=== PATIENT | female | born 1945 | race Caucasian/White ===

== ENCOUNTER 2018-04-27 09:54 | Inpatient (IN) ==
[2018-04-27] MEDS ORDERED: 0.9 % Sodium Chloride 500 ML IVC ONE (10:32)
[2018-04-27 10:50] LABS: Basophils # 0.1 K/mcL (0.0-0.2); Basophils % 0.6 %; Eosinophils # 0.5 K/mcL (0.0-0.6); Eosinophils % 3.8 %; Hematocrit 45.5 % (35.3-44.9); Hemoglobin 14.6 g/dL (11.5-15.4); Immature Granulocytes % 0.7 % (0-4); Lymphocytes # 2.9 K/mcL (0.6-4.6); Mean Corpuscular HGB Conc 32.1 g/dL (31.6-35.5); Mean Corpuscular Hemoglobin 28.9 pg (28.0-33.3); Mean Corpuscular Volume 89.9 fL (83.0-100.0); Mean Platelet Volume 11.2 fL (9.4-12.4); Monocytes # 1.2 K/mcL (0.0-1.3); Monocytes % 9.9 %; Neutrophils # 7.7 K/mcL (1.6-8.9); Platelet Count 213 K/mcL (140-400); Red Blood Count 5.06 M/mcL (3.82-4.97); Red Cell Distribution Width 14.2 % (11.5-14.5)
[2018-04-27 10:57] LABS: INR 0.9; Prothrombin Time 9.9 Seconds (9.4-12.1)
[2018-04-27 11:00] LABS: Activated Partial Thrombo Time 28.4 Seconds (26.0-36.0)
[2018-04-27 11:09] LABS: Calcium 9.5 mg/dL (8.6-10.3); Potassium 4.5 mEq/L (3.5-5.1)
[2018-04-27] MEDS ORDERED: Isovue-370 500 ML INFUS..BTL IV ONE (11:10)
[2018-04-27] MEDS: Aspirin 81 MG TAB.CHEW PO SCH (11:11)
[2018-04-27 11:12] LABS: Troponin I 0.05 ng/mL (< 0.04)
[2018-04-27] MEDS ORDERED: *HR* Heparin 5,000 UNIT/ML VIAL IVP PRN ×2 (11:16)
[2018-04-27] MEDS ORDERED: *HR* Heparin 5,000 UNIT/ML VIAL IVP ONE (11:16)
[2018-04-27 11:45] LABS: Heparin anti-factor XA UFH 0.06 IU/mL (0.30-0.70)
[2018-04-27 11:46] LABS: VBG HCO3 29 mEq/L (21-27); VBG PCO2 50 mmHg (41-51); VBG PH 7.38 pH Units (7.32-7.42); VBG PO2 63 mmHg (25-50)
--- NOTE | 2018-04-27 11:54 | Emergency Department Note ---
Disposition Clinical Impression: Shortness of breath Atrial fibrillation Qualifiers: Atrial fibrillation type: unspecified Qualified Code(s): I48.91 - Unspecified atrial fibrillation Chest pain Qualifiers: Chest pain type: unspecified Qualified Code(s): R07.9 - Chest pain, unspecified Disposition: Admitted As Inpatient Condition: Fair Referrals: Aleyda Moy CNP [Primary Care Provider] - 05/07/18 11:00 am Time of Disposition: 13:36 Arrhythmia/Palpitations HPI - General Chief Complaint: ED Shortness of Breath/Dyspnea Stated Complaint: HHR Time Seen by Provider: 04/27/18 10:10 Source: patient Limitations: no limitations Nursing Notes Reviewed: Yes Vital Signs Reviewed: Yes - History of Present Illness HPI Narrative: Patient is a 72-year-old female presenting from her primary care physician to [facility] ED due to elevated heart rate. The patient states for the past month that she has experienced lightheadedness, shortness of breath, and heart palpitations and was scheduled for a cardiac s tress test on the . 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 Upon EKG evaluation it was found that the patient was in atrial fibrillation with RVR. Patient states that she has no known history of heart disease or atrial fibrillation arrhythmia. Patient states "this is a shock to me". Pt Subjective Complaint: rapid heart beat, irregular heart beat Onset (ago): month(s) Duration: intermittent Severity: moderate Context: occurred during rest, occurred during exertion Arrhythmia History: other (Patient denies previous known history of A. fib) Associated symptoms: Reports: chest pain, shortness of breath, nausea, paresthesias. Denies: vomiting - Related Data Home Medications Medication Instructions Recorded Confirmed Aspirin 325 mg PO DAILY 04/27/18 04/27/18 BuPROPion XL (24 HR) [Wellbutrin 150 mg PO DAILY 04/27/18 04/27/18 XL] Colchicine [Mitigare] 0.6 mg PO AD PRN 04/27/18 04/27/18 DULoxetine [Cymbalta] 30 mg PO BID 04/27/18 04/27/18 Dicyclomine [Bentyl] 10 mg PO QID 04/27/18 04/27/18 Febuxostat [Uloric] 40 mg PO DAILY 04/27/18 04/27/18 Furosemide [Lasix] 40 mg PO DAILY 04/27/18 04/27/18 Linagliptin [Tradjenta] 5 mg PO DAILY 04/27/18 04/27/18 Lisinopril 2.5 mg PO DAILY 04/27/18 04/27/18 Lovastatin 40 mg PO QPM 04/27/18 04/27/18 Omeprazole [PriLOSEC] 20 mg PO DAILY 04/27/18 04/27/18 Pioglitazone HCl [Actos] 15 mg PO DAILY 04/27/18 04/27/18 Potassium Chloride [K-Tab ER] 10 meq PO DAILY 04/27/18 04/27/18 Ranitidine HCl [Acid Campus Manager] 150 mg PO DAILY 04/27/18 04/27/18 Tizanidine HCl 4 mg PO TID PRN 04/27/18 04/27/18 glipiZIDE [Glipizide] 10 mg PO BID 04/27/18 04/27/18 Allergies Allergy/AdvReac Type Severity Reaction Status Date / Time gabapentin Allergy Dizziness Verified 08/19/15 08:03 indomethacin Allergy Dizziness Verified 04/26/15 20:36 All systems ED: reviewed and negative except as stated. Review of Systems: As Per HPI Constitutional: Reports: weakness, other (Patient states lightheadedness/dizziness) Eyes: Denies: vision change Cardiovascular: Reports: chest pain, palpitations, dyspnea on exertion Respiratory: Reports: dyspnea Gastrointestinal: Reports: nausea. Denies: abdominal pain, vomiting Musculoskeletal: Reports: back pain Neurological: Denies: headache, numbness, paresthesias Endocrine: Reports: fatigue Past Medical History - Past Medical History Medical history: Reports: arthritis, diabetes, fibromyalgia, renal disease Surgical history: Reports: hysterectomy Psychiatric history: Reports: no psych history - Social History Smoking Status: Never smoker Smokeless Tobacco Status: No Alcohol use: Reports: none Drug use: Reports: none Physical Exam - General Limitations: no limitations General appearance: alert, in distress - Head Head exam: atraumatic, normocephalic - Eye Eye exam: Present: normal appearance, PERRL, EOMI. Absent: scleral icterus, conjunctival injection - Neck Neck exam: Present: trachea midline - Chest Chest inspection: Present: normal inspection, symmetric chest wall rise - Respiratory Respiratory exam: Present: normal lung sounds bilaterally. Absent: respiratory distress, wheezes, stridor, accessory muscle use, prolonged expiratory phase - Cardiovascular Cardiovascular exam: Present: tachycardia, irregular rhythm, normal heart sounds, +S1, +S2. Absent: JVD, +S3, +S4 - Abdominal Exam Abdominal exam: Present: soft, Non-Tender, normal bowel sounds. Absent: distention, guarding, rebound, rigidity - Neurological Exam Neurological exam: Present: alert, oriented X3 - Psychiatric Psychiatric exam: Present: normal affect, normal mood - Skin Skin exam: Present: warm, dry, intact, normal color. Absent: cyanosis, diaphoresis Course Course Narrative: Patient history, review systems, physical exam is concerning for cardiopulmonary process. Chest pain order set will be initiated in order to assess for potential underlying etiologies. 20 mg Cardizem as well as drip will be initiated for the management of atrial fibrillation with rapid ventricular response. Patient d-dimer noted to be elevated at 984-we will perform V/Q scan will be performed to assess for pulmonary embolism in lieu of CTA due to CKD. Vital Signs Temperature 98.4 F 04/27/18 10:01 Pulse Rate 173 04/27/18 10:01 Respiratory Rate 20 04/27/18 10:01 Blood Pressure 109/62 04/27/18 10:01 O2 Sat by Pulse Oximetry 98 04/27/18 10:01 Temperature 98.4 F 04/27/18 10:19 Pulse Rate 107 04/27/18 12:30 Respiratory Rate 21 04/27/18 12:30 Blood Pressure 105/91 04/27/18 12:30 O2 Sat by Pulse Oximetry 98 04/27/18 12:30 Oxygen Delivery Oxygen Delivery Room Air Arrhythmia/Palpitations - MDM Narrative Medical decision making narrative: Patient d-dimer is elevated, patient receive a VQ scan due to chronic kidney disease in lieu of CT angiogram of the chest. Admission planning discussed with patient for further evaluation and treatment of atrial fibrillation with rapid ventricular response. Plan was discussed with the patient and daughter and the patient agrees with this plan. Hospitalist accepts admission. - Differential Diagnosis Differential Diagnosis: Likely: artial arrhythmia - Lab Data Lab results reviewed: Yes I reviewed the patient's lab results. Result diagrams: 04/27/18 10:30 04/27/18 10:30 Lab Results 04/27/18 04/27/18 04/27/18 Range/Units 10:30 10:30 10:30 WBC (4.3-11.1) K/mcL RBC (3.82-4.97) M/mcL Hgb (11.5-15.4) g/dL Hct (35.3-44.9) % MCV (83.0-100.0) fL MCH (28.0-33.3) pg MCHC (31.6-35.5) g/dL RDW (11.5-14.5) % Plt Count (140-400) K/mcL MPV (9.4-12.4) fL Immature Gran % (0-4) % Seg Neutrophils % % Lymphocytes % % Monocytes % % Eosinophils % % Basophils % % Neutrophils # (1.6-8.9) K/mcL Lymphocytes # (0.6-4.6) K/mcL Monocytes # (0.0-1.3) K/mcL Eosinophils # (0.0-0.6) K/mcL Basophils # (0.0-0.2) K/mcL PT 9.9 (9.4-12.1) Seconds INR 0.9 APTT 28.4 (26.0-36.0) Seconds D-Dimer 994 H (0-500) ng/mLFEU Heparin Anti-Xa, Unfract 0.06 L (0.30-0.70) IU/mL VBG pH (7.32-7.42) pH Units VBG pCO2 (41-51) mmHg VBG pO2 (25-50) mmHg VBG HCO3 (21-27) mEq/L Sodium (136-145) mEq/L Potassium (3.5-5.1) mEq/L Chloride (98-107) mEq/L Carbon Dioxide (23-29) mEq/L BUN (8-23) mg/dL Creatinine (0.60-1.20) mg/dL Est GFR ( Amer) (> 60) Est GFR (Non-Af Amer) (> 60) BUN/Creatinine Ratio (6-26) Glucose (70-105) mg/dL Calculated Osmolality (280-300) Calcium (8.6-10.3) mg/dL Magnesium (1.6-2.6) mg/dL Troponin I (< 0.04) ng/mL B-Natriuretic Peptide 138 H (Less than 100) pg/mL Lipase 41 (11-82) Units/L TSH (0.340-5.600) mcIU/mL 04/27/18 04/27/18 04/27/18 Range/Units 10:30 10:30 11:43 WBC 12.4 H (4.3-11.1) K/mcL RBC 5.06 H (3.82-4.97) M/mcL Hgb 14.6 (11.5-15.4) g/dL Hct 45.5 H (35.3-44.9) % MCV 89.9 (83.0-100.0) fL MCH 28.9 (28.0-33.3) pg MCHC 32.1 (31.6-35.5) g/dL RDW 14.2 (11.5-14.5) % Plt Count 213 (140-400) K/mcL MPV 11.2 (9.4-12.4) fL Immature Gran % 0.7 (0-4) % Seg Neutrophils % 62.0 % Lymphocytes % 23.0 % Monocytes % 9.9 % Eosinophils % 3.8 % Basophils % 0.6 % Neutrophils # 7.7 (1.6-8.9) K/mcL Lymphocytes # 2.9 (0.6-4.6) K/mcL Monocytes # 1.2 (0.0-1.3) K/mcL Eosinophils # 0.5 (0.0-0.6) K/mcL Basophils # 0.1 (0.0-0.2) K/mcL PT (9.4-12.1) Seconds INR APTT (26.0-36.0) Seconds D-Dimer (0-500) ng/mLFEU Heparin Anti-Xa, Unfract (0.30-0.70) IU/mL VBG pH 7.38 (7.32-7.42) pH Units VBG pCO2 50 (41-51) mmHg VBG pO2 63 H (25-50) mmHg VBG HCO3 29 H (21-27) mEq/L Sodium 138 (136-145) mEq/L Potassium 4.5 (3.5-5.1) mEq/L Chloride 102 (98-107) mEq/L Carbon Dioxide 29 (23-29) mEq/L BUN 33 H (8-23) mg/dL Creatinine 1.37 H (0.60-1.20) mg/dL Est GFR ( Amer) 46 L (> 60) Est GFR (Non-Af Amer) 38 L (> 60) BUN/Creatinine Ratio 24 (6-26) Glucose 259 H (70-105) mg/dL Calculated Osmolality 302 H (280-300) Calcium 9.5 (8.6-10.3) mg/dL Magnesium 2.1 (1.6-2.6) mg/dL Troponin I 0.05 H* (< 0.04) ng/mL B-Natriuretic Peptide (Less than 100) pg/mL Lipase (11-82) Units/L TSH 0.148 L (0.340-5.600) mcIU/mL - Radiology Data Radiology results reviewed: Yes I reviewed the patient's radiology results. Chest X-Ray 04/27/18 10:35 IMPRESSION: Nodular left basilar opacity, which may be artifactual or due to a pulmonary nodule. Further evaluation with a noncontrast chest CT is recommended. D/ /27/2018 11:04:56 Mike Raines MD / [email or web address] [email or web address] Interpreting Provider: Mike Raines MD - EKG Data EKG attestation: Yes I reviewed and interpreted this EKG. EKG results narrative: Patient EKG shows atrial fibrillation with rapid ventricular response with a ventricular rate of 167 bpm, QRS duration 86 ms, QT/QTc interval 252/343 ms respectively. There are no significant ST segment elevations or depressions, abnormal T-wave inversions, or pathologic Q waves. Or any other signs of acute ischemic change. This EKG shows significant changes in the ADDITION of atrial fibrillation from prior EKG that was performed on 08/19/2015. Attestation Statement - Attestation Attestation: I, Cuong Johnson, examined this patient and my medical decision-making was reviewed with the CARE CLINICIAN/PA/Advanced Practice Nurse/Resident Physician. I agree with the documented findings, disposition and treatment plan as described except to the extent set forth below. 72-year-old female brought to the emergency Department with concerns of shortness breath, weakness, fatigue and tachycardia. On evaluation emergency Department she has tachycardia to a rate of 160 which appears to be atrial fibrillation with a rapid ventricular rate. No history of itching fibrillation in the past. Patient denies chest pain however she has a history of increased shortness of breath with exertion and weakness over the past few weeks. No recent medication changes. D-dimer was elevated and patient will require V/Q scan however we will be unable to obtain VQ scan for many hours as the chemicals used test have to be brought to the hospital. She will be started on heparin for treatment of A. fib but also possible PE. Patient will be admitted to the hospitalist for further care and evaluation.
--- NOTE | 2018-04-27 12:14 | Internal Med History&Physical ---
Date of Encounter: 04/27/18 Time of Encounter: 12:06 Internal Medicine - H&P: HPI Chief complaint: irregular heart beat Admitted From: Home Plans for Post Hospital Care: Home History of present illness: Ms. Mason is a 72 year old female with history of diabetes, hypertension, chronic kidney disease and arthritis presented to the emergency department from her physician office for irregular heartbeat. she went to her pain management physician for bilateral sacroillitis pain injection adn was found to have rapid irregular HR and was referred to The ED for further workup and management. As per patient she has never had any cardiac history and has never been told that she has irregular heartbeat. She reports that she is at her usual health state however does report that for the past week she has developed increasing shortness of breath. Her shortness of breath started suddenly last week and has progressively worsened. She reports that deep breathing causes her to feel discomfort in her chest. Source of breath is at rest and worsens on exertion however she denies any left-sided chest pain or palpitations associated with her shortness of breath. 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 She also does report bilateral leg swelling which has increased from her baseline. She denies fever, chills, cough, chest pain, palpitations, PND, orthopnea, nausea, vomiting, diarrhea, recent travel. She has never had symptoms like this before and denies smoking. While in the ED she was found to have atrial fibrillation with RVR, elevated troponin and BNP. She was started on Cardizem drip and was endorsed for further management of her above symptoms. Past Med Surg Social Fam HX - Past Medical History Medical history: arthritis, diabetes, fibromyalgia, renal disease Additional medical history: gout Psychiatric history: no psych history - Past Surgical History Surgical History: hysterectomy - Social History Smoking Status: Never smoker Smokeless Tobacco Status: No Alcohol use: none Drug use: none - Family History Father Living Status: Mother Living Status: Internal Medicine - H&P: Meds Aspirin 325 mg PO DAILY 04/27/18 [History] BuPROPion XL (24 HR) [Wellbutrin XL] 150 mg PO DAILY 04/27/18 [History] Colchicine [Mitigare] 0.6 mg PO AD PRN 04/27/18 [History] DULoxetine [Cymbalta] 30 mg PO BID 04/27/18 [History] Dicyclomine [Bentyl] 10 mg PO QID 04/27/18 [History] Febuxostat [Uloric] 40 mg PO DAILY 04/27/18 [History] Furosemide [Lasix] 40 mg PO DAILY 04/27/18 [History] Linagliptin [Tradjenta] 5 mg PO DAILY 04/27/18 [History] Lisinopril 2.5 mg PO DAILY 04/27/18 [History] Lovastatin 40 mg PO QPM 04/27/18 [History] Omeprazole [PriLOSEC] 20 mg PO DAILY 04/27/18 [History] Pioglitazone HCl [Actos] 15 mg PO DAILY 04/27/18 [History] Potassium Chloride [K-Tab ER] 10 meq PO DAILY 04/27/18 [History] Ranitidine HCl [Acid Salvage Mechanic] 150 mg PO DAILY 04/27/18 [History] Tizanidine HCl 4 mg PO TID PRN 04/27/18 [History] glipiZIDE [Glipizide] 10 mg PO BID 04/27/18 [History] Allergy/AdvReac Type Severity Reaction Status Date / Time gabapentin Allergy Dizziness Verified 08/19/15 08:03 indomethacin Allergy Dizziness Verified 04/26/15 20:36 All Systems PM: A 10-system review of systems was performed and is negative for pertinent findings except as documented above in the HPI. - Constitutional Vitals: Temp Pulse Resp BP Pulse Ox 98.4 F 105 19 175/138 99 04/27/18 10:19 04/27/18 11:16 04/27/18 11:16 04/27/18 11:16 04/27/18 11:16 Exam: General: Patient is alert, oriented, no acute distress, morbidly obese, speaks in full sentences Head: atraumatic, normocephalic, Eye: normal appearance, PERRL, no scleral icterus, no conjunctival injection ENT: mucous membranes moist, normal external ear exam Neck: normal inspection, trachea midline, full ROM, no carotid bruits Chest: normal inspection, symmetric chest rise Respiratory: Distant breath sounds secondary to body habitus, Good respiratory effort. Bilateral breath sounds are clear without wheezing, crackles, or rhonchi. Cardiovascular: Distant heart sounds secondary to body habitus, irregularly irregular . s1 and s2 No clicks, rubs, gallops, or murmors. Abdomen: Bowel sounds present normoactive x-4 quadrants. Abdomen is soft, no Epigastric tenderness. No guarding or rebound. No organomegaly noted, obese musculoskeletal: Spontaneously moving all extremities. Trace edema bilateral lower extremities, no calf tenderness Skin: warm, dry, intact. Notable bruising on her upper extremities and lower extremities in different stages of healing. Neuro: Alert and oriented x4. Sensation light touch intact. Cranial nerves 2- 12 is intact. No focal deficit Internal Med - H&P Results - Labs CBC & Chem 7: 04/27/18 10:30 04/27/18 10:30 Labs: Short CBC 04/27/18 Range/Units 10:30 WBC 12.4 H (4.3-11.1) K/mcL Hgb 14.6 (11.5-15.4) g/dL Hct 45.5 H (35.3-44.9) % Plt Count 213 (140-400) K/mcL Neutrophils # 7.7 (1.6-8.9) K/mcL BMP 04/27/18 10:30 Sodium 138 Potassium 4.5 Chloride 102 Carbon Dioxide 29 BUN 33 H Creatinine 1.37 H Glucose 259 H Calcium 9.5 Cardiac Enzymes 04/27/18 Range/Units 10:30 Troponin I 0.05 H* (< 0.04) ng/mL - ABG Interpretation ABG results: 04/27/18 11:43 VBG pH 7.38 VBG pCO2 50 VBG pO2 63 H VBG HCO3 29 H - EKG Data -: EKG Interpreted by Myself (Atrial fibrillation with RVR, nonspecific ST-T changes) - EKG Data Prior EKG available for review: yes When compared to previous EKG: there are significant changes - Impressions ITS Impressions Chest X-Ray 04/27/18 10:35 IMPRESSION: Nodular left basilar opacity, which may be artifactual or due to a pulmonary nodule. Further evaluation with a noncontrast chest CT is recommended. D/ /27/2018 11:04:56 Mike Raines MD / kristen Interpreting Provider: Mike Raines MD - Assessment and plan (1) First detected episode of atrial fibrillation Current Visit: Yes Status: Acute Assessment and plan: Heart rate was 173 upon arrival to the emergency department chads vasc 4 Cardiac monitoring Was started on Cardizem drip will continue to titrate to control the heart rate Cardiology consulted ( Spoke to Dr. Fuchs) will follow recommendations Continue with heparin drip- pharmacy to dose TSH, magnesium, phosphorus Echocardiogram stat Oxygen via nasal cannula keep saturations above 92% We will follow serial troponins and EKGs every 6 hours CXR: FINDINGS: There is a somewhat nodular opacity at the base of the left lung. No pleural effusion or pneumothorax is seen. The heart is enlarged. There is no evidence of edema. No acute osseous abnormality is seen. (2) Acute respiratory failure with hypoxia Current Visit: Yes Status: Acute Assessment and plan: Wells criteria- 6- (at moderate risk) D-Dimer 900 unable to perform CTPA in very to chronic kidney disease VQ scan was ordered in the emergency department will follow Echocardiogram ordered Continue with heparin drippharmacy to dose DVT study of the lower extremities continuous pulse ox Continue oxygen via nasal cannula to keep saturations above 92% (3) Diabetes Current Visit: Yes Status: Acute Assessment and plan: We will start her on low-dose sliding scale- adjust as per fingersticks A1c in a.m. Qualifiers: Diabetes mellitus type: type 2 Diabetes mellitus assisted insulin use: without assisted use Diabetes mellitus complication status: without complication Qualified Code(s): E11.9 - Type 2 diabetes mellitus without complications (4) Morbid obesity with BMI of 50.0-59.9, adult Current Visit: No Status: Chronic Assessment and plan: Was counseled BMI is 52.6 Nutrition consult needs OP sleep study (5) DVT prophylaxis Current Visit: Yes Status: Acute Assessment and plan: On heparin drip - Time Spent With Patient Total time spent is greater than 50% in coordination of care (as documented) at patient's floor/unit and/or counseling patient:
[2018-04-27] MEDS ORDERED: Furosemide 20 MG/2 ML VIAL IVP ONE ×2 (12:24→14:09)
[2018-04-27] MEDS ORDERED: Naloxone 0.4 MG/ML INJ IVP PRN (12:26)
[2018-04-27] MEDS: Heparin 25,000 UNIT/500 ML D5W 25,000 UNIT/500 ML BAG IVC SCH (12:27)
[2018-04-27 12:29] LABS: Magnesium 2.1 mg/dL (1.6-2.6)
[2018-04-27 12:49] LABS: Thyroid Stimulating Hormone 0.148 mcIU/mL (0.340-5.600)
[2018-04-27] MEDS ORDERED: 0.9 % Sodium Chloride 1,000 ML ONE (13:26)
--- NOTE | 2018-04-27 13:48 | Cardiology Consult Note ---
<Rose Flores - Last Filed: 04/27/18 14:16> Date of Encounter: 04/27/18 Time of Encounter: 13:37 Assessment and Plan (1) Atrial fibrillation with RVR Current Visit: Yes Status: Acute New onset A fib wit RVR currently HR 149 on 10 of cardizem drip. EKG repeated and reviewed showed A fib with no acute signs of ischemia with minimal elevated troponin at 0.05. Possible etiology in recent gout flair and hyperthyriodism with risk factors of untreated DEBRA - need to rule out ACS and heart failure given chronic progressive symptoms. CADVASC of 5 and may need continued anticoagulation. - continue cardizem and heparin drip - agree with need for echo - trend troponins - lasix 40mg IV daily - low TSH 0.148, consider free T3 and T4 (2) Elevated d-dimer Current Visit: Yes Status: Acute D dimer of 994 with new onset A fib and concern for PE - agree with need for V-Q scan - continue heparin drip (3) DEBRA (obstructive sleep apnea) Current Visit: Yes Status: Chronic (4) Hyperthyroidism Current Visit: Yes Status: Acute New diagnosis and possible etiology for A fib Discussion w patient/family: The assessment and plan as outlined above was discussed with the patient and/or family members who expressed understanding and agreement. All questions were answered. Thank you for involving us in the care of your patient. Please call with any questions. History of Present Illness Consult date: 04/27/18 Consult reason: new onset A fib with RVR Chief complaint: shortness of breath History of present illness: Ms. Mason is a 72 year old female hx DEBRA, DM and CKD stage 3 sent to ER by Pain Medicine due to irregular heart rate and shortness of breath at rest onset before any procedure. She reports one week of headache, increased shortness of breath, increased pedal edema, and dizziness evaluated by PCP and schedule for out patient stress test. Denies chest pain, palpitations and syncope. Headache pounding located at frontal and occiput with out aura, photophobia or phonophobia. In ED, found to be in A fib with RVR with HR 137 started on cardizem and heparin drip with decrease of heart rate to 107. BP liable in ED with range form 187/159 to 109/62. Positive D dimer with concern for PE - awaiting VQ scan. Recent illness with gout flair treated by ED last week with oral steriods- frequent steroid use every few months for years. No history of heart disease. PMHx HTN, CKD, GERD, morbid obesity, fibromalagia, gout and DM well controlled with out insulin use. FMHX of father at age 57 of [place]. She was diagnosed with DEBRA decades ago s/p uvulectomy and tonsillectomy - admits to snoring and waking unrested but never evaluated and doesn't use CPAP. Distant smoking history of 20 pk yr quit 40 yesra ago. Denies illicit drug use. Past Med Surg Social Fam HX - Past Medical History Medical history: arthritis, diabetes, fibromyalgia, renal disease Additional medical history: gout Psychiatric history: no psych history - Past Surgical History Surgical History: hysterectomy - Social History Smoking Status: Never smoker Smokeless Tobacco Status: No Alcohol use: none Drug use: none - Family History Father Living Status: Mother Living Status: Medications and Allergies Aspirin 325 mg PO DAILY 04/27/18 [History] BuPROPion XL (24 HR) [Wellbutrin XL] 150 mg PO DAILY 04/27/18 [History] Colchicine [Mitigare] 0.6 mg PO AD PRN 04/27/18 [History] DULoxetine [Cymbalta] 30 mg PO BID 04/27/18 [History] Dicyclomine [Bentyl] 10 mg PO QID 04/27/18 [History] Febuxostat [Uloric] 40 mg PO DAILY 04/27/18 [History] Furosemide [Lasix] 40 mg PO DAILY 04/27/18 [History] Linagliptin [Tradjenta] 5 mg PO DAILY 04/27/18 [History] Lisinopril 2.5 mg PO DAILY 04/27/18 [History] Lovastatin 40 mg PO QPM 04/27/18 [History] Omeprazole [PriLOSEC] 20 mg PO DAILY 04/27/18 [History] Pioglitazone HCl [Actos] 15 mg PO DAILY 04/27/18 [History] Potassium Chloride [K-Tab ER] 10 meq PO DAILY 04/27/18 [History] Ranitidine HCl [Acid Rigger Third] 150 mg PO DAILY 04/27/18 [History] Tizanidine HCl 4 mg PO TID PRN 04/27/18 [History] glipiZIDE [Glipizide] 10 mg PO BID 04/27/18 [History] Allergy/AdvReac Type Severity Reaction Status Date / Time gabapentin Allergy Dizziness Verified 08/19/15 08:03 indomethacin Allergy Dizziness Verified 04/26/15 20:36 All Systems Review: The remainder of the systems were reviewed and are negative - Constitutional Constitutional: fatigue, headache(s), no frequent falls - EENT Eyes: no blurred vision, no loss of vision - Cardiovascular Cardiovascular: dyspnea at rest, irregular heart rhythm, lightheadedness, rapid heart rate, no chest pain with exertion, no diaphoresis, no orthopnea, no palpitations, no paroxysmal nocturnal dyspnea, no syncope - Respiratory Respiratory: dyspnea, no cough, no wheezing - Gastrointestinal Gastrointestinal: constipation, no abdominal pain, no diarrhea, no nausea - Genitourinary Genitourinary: no dysuria, no hematuria, no nocturia - Musculoskeletal Musculoskeletal: arthralgias, myalgias - Neurological Neurological: dizziness, no loss of vision, no memory loss, no syncope - Psychiatric Psychiatric: depression, no anxiety - Hematological/Lymphatic Hematologic/Lymphatic: no easy bleeding, no easy bruising Physical Examination Vital Signs, Last 4 Hours Temp Pulse Resp BP Pulse Ox 04/27/18 13:18 98.2 F 135 18 119/82 97 04/27/18 12:30 107 21 105/91 98 04/27/18 11:16 105 19 175/138 99 04/27/18 10:27 187/159 04/27/18 10:19 98.4 F 173 20 109/62 98 04/27/18 10:01 98.4 F 173 20 109/62 98 General: Conversant, No Apparent Distress HEENT: Atraumatic, Normocephaly, Mucus Membranes Moist, Other (large neck, alarcon face) Neck: No JVD, Normal carotid pulses Cardiac: No Murmur (distant due to body habitus), Other (irregularly irregular) Lungs: Normal Breath Sounds, No Wheeze, Rales, Rhonchi Neuro: Alert and responsive, No focal deficits noted Abdomen: Soft, Non-Tender Skin: No rashes noted on visualized skin Musculoskeletal: No Chest Wall Tenderness, Other (large buffalo hump) Extremities: No Clubbing, No Cyanosis, Normal Pulses, Other (trace pedal edema) Results 04/27/18 10:30 04/27/18 10:30 Lab Results 04/27/18 04/27/18 04/27/18 10:30 10:30 10:30 WBC Hgb Hct Plt Count INR 0.9 APTT 28.4 D-Dimer 994 H Sodium Potassium Chloride Carbon Dioxide BUN Creatinine Glucose Calcium Magnesium Troponin I B-Natriuretic Peptide 138 H Lipase 41 TSH 04/27/18 04/27/18 10:30 10:30 WBC 12.4 H Hgb 14.6 Hct 45.5 H Plt Count 213 INR APTT D-Dimer Sodium 138 Potassium 4.5 Chloride 102 Carbon Dioxide 29 BUN 33 H Creatinine 1.37 H Glucose 259 H Calcium 9.5 Magnesium 2.1 Troponin I 0.05 H* B-Natriuretic Peptide Lipase TSH 0.148 L Consult Discharge Plan - Plan Referrals: Aleyda Moy CNP [Primary Care Provider] - 05/07/18 11:00 am <Maude Campos - Last Filed: 04/27/18 15:07> Date of Encounter: 04/27/18 - Attending Attestation I examined this patient and my medical decision-making was reviewed with the Resident Physician. I agree with the documented findings, disposition and treatment plan as described. Ms. Mason presents with SOB found to be in newly discovered AF RVR. She is comfortable at bedside, breathing comfortably in NAD. She reports dyspnea with exertion that became worse over the last few weeks. Also noted worse LE edema. States that she's been using steroids for a gout exacerbation. Also notes eating salty prepackaged meals from [facility]. Denies chest pain, palpitations or syncope. AAOx3, NAD accompanied by son Exam - irregularly irregular, diminished breath sounds, mild BLE edema, elevated JVP Echo ordered Labs demonstrate chronic CKD, low TSH, troponin 0.05, normal Hgb ECG - afib with RVR, nonspecific ST abnormalities Impression: 1. AFIB: Newly discovered. Etiology may be multifactorial and in part due to hyperthyroid state? - will defer further workup to primary team. She also has known DEBRA having had a ENT surgery in the . Suspect sleep apnea is present and will need outpatient evaluation. Also may be fluid overloaded. Denies chest pain. Troponin flat - will trend. For now continue rate control and heparin gtt. Echo pending. Low likelihood of PE - no recent travel, no known malignancy, no evidence for unilateral leg swelling - will defer to primary team. Have discussed halfway anticoagulation which the patient is in agreement with. 2. Elevated troponin: Initial troponin 0.05. Recommend trending. Patient is not having chest pain. No acute ischemic findings on ECG. Continue heparin gtt. 3. Abnormal TSH: Will defer to primary team for management. Assessment and Plan Discussion w patient/family: The assessment and plan as outlined above was discussed with the patient and/or family members who expressed understanding and agreement. All questions were answered. Thank you for involving us in the care of your patient. Please call with any questions. History of Present Illness History of present illness: Ms. Mason is a 72 year old female All Systems Review: The remainder of the systems were reviewed and are negative Physical Examination Vital Signs, Last 4 Hours Temp Pulse Resp BP Pulse Ox 04/27/18 13:46 136 94 04/27/18 13:18 98.2 F 135 18 119/82 97 04/27/18 12:30 107 21 105/91 98 04/27/18 11:16 105 19 175/138 99 Results 04/27/18 10:30 04/27/18 10:30 Lab Results 04/27/18 04/27/18 04/27/18 10:30 10:30 10:30 WBC Hgb Hct Plt Count INR 0.9 APTT 28.4 D-Dimer 994 H Sodium Potassium Chloride Carbon Dioxide BUN Creatinine Glucose Calcium Magnesium Troponin I B-Natriuretic Peptide 138 H Lipase 41 TSH 04/27/18 04/27/18 10:30 10:30 WBC 12.4 H Hgb 14.6 Hct 45.5 H Plt Count 213 INR APTT D-Dimer Sodium 138 Potassium 4.5 Chloride 102 Carbon Dioxide 29 BUN 33 H Creatinine 1.37 H Glucose 259 H Calcium 9.5 Magnesium 2.1 Troponin I 0.05 H* B-Natriuretic Peptide Lipase TSH 0.148 L
[2018-04-27] MEDS ORDERED: Perflutren Lipid Microsphere 1.3 ML in 0.9 % Sodium Chloride 8.7 ML IVP ONE (15:29)
[2018-04-27 17:01] LABS: Bilirubin,Urine Negative (Negative); Blood,Urine Negative (Negative); Clarity,Urine Clear (Clear); Color,Urine Yellow (Yellow); Glucose,Urine (UA) 100 mg/dL (Normal); Ketones,Urine Negative (Negative); Leukocyte Esterase,Urine Negative (Negative); Nitrite,Urine Negative (Negative); PH,Urine 7.5 pH Units (5.0-8.0); Protein,Urine 30 mg/dL (Neg-Trace); Specific Gravity,Urine 1.021 (1.010-1.025); Urobilinogen,Urine Normal (Normal)
[2018-04-27 17:03] LABS: Bacteria,Urine None Seen per hpf (None-Few); Hyaline Casts,Urine None Seen per lpf (None-Few); RBC,Urine 0-3 per hpf (0-3); Squamous Epithelial Cell,Urine Many per lpf (None-Few); WBC,Urine 0-3 per hpf (0-3)
--- NOTE | 2018-04-27 19:06 | Electrocardiograph Report ---
[facility] Test Date: 2018-04-27 Pat Name: Edelmira Mason Department: 104 Room: 2N03 Gender: F Rand Maker: BELLA : 1945 Requested By: Cuong Johnson Order Number: [id number] Reading MD: Oneida Escobar Measurements Intervals [place] Rate: 167 P: VT: 0 QRS: 15 QRSD: 86 T: 91 QT: 252 QTc: 343 Interpretive Statements ATRIAL FIBRILLATION WITH RAPID VENTRICULAR RESPONSE WITH ABERRANT CONDUCTION OR VENTRICULAR PREMATURE COMPLEXES NONSPECIFIC ST & T-WAVE ABNORMALITY WARNING: DATA QUALITY MAY AFFECT INTERPRETATION Electronically Signed On 04-27-2018 19:04:26 EST by Oneida Escobar
[2018-04-27] MEDS ORDERED: D5% in Water 1,000 ML IVC PRN (20:22)
[2018-04-27] MEDS ORDERED: *HR* Dextrose 50 % in Water (Syg) 50 ML SYRINGE IVP PRN (20:22)
[2018-04-27] MEDS ORDERED: Dextrose Gel 15 GM/37.5 ML TUBE PO PRN ×2 (20:22)
[2018-04-27] MEDS ORDERED: *HR* HYDROcodone/Acet 5/325 mg TABLET PO PRN (20:23)
[2018-04-27] MEDS: Insulin LISPRO 300 UNITS/3 ML VIAL SQ SCH (20:32)
[2018-04-28] MEDS ORDERED: diazePAM 10 MG/2 ML SYRINGE IVP ONE ×2 (00:09→03:08)
--- NOTE | 2018-04-28 03:07 | Event Note ---
Date of Encounter: 04/27/18 Time of Encounter: 20:09 Alerted by patient's nurse TATE Sutherland that patient was wanting something for her acid reflux. Instructed nurse that patient's Prilosec was ordered for 06:30 in the a.m. patient stated she would need something tonight so Tums ordered. Nurse also informed the patient was complaining of arthritis pain and reports taking Vicodin at home. Patient's glipizide also was not ordered and current blood sugar was 242. Patient stated she did not take insulin at home. Low-dose correction sliding scale insulin and BG checks before meals at bedtime ordered. Hydrocodone also ordered for pain. Nurse informed me at 20:31 the patient was reporting insomnia. Went to see patient who is resting comfortably in bed. Patient stated she takes 20 mg nightly melatonin. Instructed patient that this was too much melatonin nightly and we would attempt to come up with alternatives. Asked pt. if she would like to try the formulary equivalent of Tylenol PM (Tylenol and Benadryl) to which she said yes. Informed by nurse at 21:59 that Echo was in the pts. room and stated he would need confirmation to proceed with the echocardiogram due to patient's heart rate being greater than 100 bpm. Spoke with Echo who stated that imaging may be sub-optimal d/t high HR. Instructed tech that the Echo was necessary and to proceed. Also alerted by nurse that Benadryl was not effective and Cardizem gtt was running at 15 w/HR 120s to 150s. BP currently 145/76. 2.5 mg IVP Valium ordered. Went to see pt. again who was resting in bed. She stated that she was having problems sleeping. I instructed the pt. that I would order an additional low dose of IVP Valium if she was still having difficulty in 30 minutes. Notified by pts. nurse at 02:58 that pt. would like additional dose. 2.5 mg IVP Valium ordered at 03:06. Pt. will be monitored closely overnight.
[2018-04-28 03:45] LABS: Basophils % 0.4 %; Eosinophils # 0.5 K/mcL (0.0-0.6); Eosinophils % 4.2 %; Hematocrit 39.2 % (35.3-44.9); Immature Granulocytes % 0.6 % (0-4); Lymphocytes # 2.9 K/mcL (0.6-4.6); Lymphocytes % 25.7 %; Mean Corpuscular HGB Conc 32.1 g/dL (31.6-35.5); Mean Corpuscular Hemoglobin 28.9 pg (28.0-33.3); Mean Corpuscular Volume 89.9 fL (83.0-100.0); Mean Platelet Volume 11.1 fL (9.4-12.4); Monocytes # 1.2 K/mcL (0.0-1.3); Monocytes % 11.2 %; Neutrophils # 6.4 K/mcL (1.6-8.9); Platelet Count 167 K/mcL (140-400); Red Blood Count 4.36 M/mcL (3.82-4.97); Red Cell Distribution Width 14.1 % (11.5-14.5); Segmented Neutrophils % 57.9 %
[2018-04-28 03:55] LABS: Hemoglobin 12.6 g/dL (11.5-15.4)
[2018-04-28 04:04] LABS: Calcium 8.7 mg/dL (8.6-10.3); Chol/HDL Ratio 5.6 (0-4.9); Potassium 3.7 mEq/L (3.5-5.1)
[2018-04-28] MEDS: Heparin 25,000 UNIT/500 ML D5W 25,000 UNIT/500 ML BAG IVC SCH (05:01)
[2018-04-28 07:01] LABS: Estimated Average Glucose 180 mg/dl; Hemoglobin A1C 7.9 %
[2018-04-28] MEDS: Aspirin 81 MG TAB.CHEW PO SCH (08:50)
[2018-04-28] MEDS: (Febuxostat [Uloric] 40 MG) PO SCH (08:51)
[2018-04-28] MEDS: BuPROPion XL (24 HR) 150 MG TABLET PO SCH (08:51)
[2018-04-28] MEDS: Furosemide 40 MG/4 ML VIAL IVP SCH (08:51)
[2018-04-28] MEDS: Famotidine 20 MG TABLET PO SCH (08:51)
[2018-04-28] MEDS: Insulin LISPRO 300 UNITS/3 ML VIAL SQ SCH ×4 (08:52→20:48)
--- NOTE | 2018-04-28 10:33 | Internal Med Progress Note ---
Hospitalist Progress Note - Encounter Date of Encounter: 04/28/18 Time of Encounter: 10:21 - Subjective Interval History: patient was seen and examined at bedside. reports that she has had no chest pain, SOB, N/V/D. tolerating diet. did have some difficulty sleeping which she does have at home and is requesting melatonin. all questions answered. plan of care discussed with the patient - Exam Vitals: Temp Pulse Resp BP Pulse Ox 98.3 F 107 18 116/93 94 04/28/18 06:42 04/28/18 06:42 04/28/18 06:42 04/28/18 06:42 04/28/18 06:42 Exam: General: Patient is alert, oriented, no acute distress, morbidly obese, speaks in full sentences Head: atraumatic, normocephalic, Eye: normal appearance, PERRL, no scleral icterus, no conjunctival injection ENT: mucous membranes moist, normal external ear exam Neck: normal inspection, trachea midline, full ROM, no carotid bruits Chest: normal inspection, symmetric chest rise Respiratory: Distant breath sounds secondary to body habitus, Good respiratory effort. Bilateral breath sounds are clear without wheezing, crackles, or rhonchi. Cardiovascular: Distant heart sounds secondary to body habitus, irregularly irregular . s1 and s2 No clicks, rubs, gallops, or murmors. Abdomen: Bowel sounds present normoactive x-4 quadrants. Abdomen is soft, no Epigastric tenderness. No guarding or rebound. No organomegaly noted, obese musculoskeletal: Spontaneously moving all extremities. Trace edema bilateral lower extremities, no calf tenderness Skin: warm, dry, intact. Notable bruising on her upper extremities and lower extremities in different stages of healing. Neuro: Alert and oriented x4. Sensation light touch intact. Cranial nerves 2- 12 is intact. No focal deficit, no tremor on outstretched hands - Assessment and Plan (1) First detected episode of atrial fibrillation Current Visit: Yes Status: Acute Assessment and Plan: Heart rate was 173 upon arrival to the emergency department currently HR more controlled on cardizem drip etiology unknown (ischemia vs PE vs hyperthyroidism) chads vasc 4 Cardiac monitoring continue Cardizem drip will continue to titrate to control the heart rate Cardiology recommendation appreciated Continue with heparin drip- pharmacy to dose TSH 0.148, T4 1.40 T3 pending Echocardiogram - pending Oxygen via nasal cannula keep saturations above 92% troponins mildly elevated secondary to supply vs demand mismatch cannot rule out underlying CAD ( trended flat) CXR: FINDINGS: There is a somewhat nodular opacity at the base of the left lung. No pleural effusion or pneumothorax is seen. The heart is enlarged. There is no evidence of edema. No acute osseous abnormality is seen. EKG: ATRIAL FIBRILLATION WITH RAPID VENTRICULAR RESPONSE WITH ABERRANT CONDUCTION OR VENTRICULAR PREMATURE COMPLEXES NONSPECIFIC ST & T-WAVE ABNORMALITY (2) Acute respiratory failure with hypoxia Current Visit: Yes Status: Acute Assessment and Plan: Wells criteria- 6- (at moderate risk) D-Dimer 900 unable to perform CTPA in very to chronic kidney disease V/Q scan indeterminate for PE Echocardiogram pending Continue with heparin drippharmacy to dose DVT study of the lower extremities- negative continuous pulse ox Continue oxygen via nasal cannula to keep saturations above 92% V/Q - IMPRESSION: Medium size triple match at the peripheral left lower lobe is indeterminate for pulmonary embolism. CT scan of the chest should be considered to evaluate the left lower lobe opacity and the possibility of pulmonary infarct versus other opacity. (3) Hyperthyroidism Current Visit: Yes Status: Acute Assessment and Plan: doubt that it is the etiology for Afib TSH 0.148, T4 1.40 T3 pending ? 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 Heterogeneity somewhat limits evaluation but there do appear to be two discrete nodules to the thyroid, one to the right thyroid lobe and one to the left thyroid lobe as above. These are amenable to continued follow-up with repeat evaluation in [address] neck: 2017- The thyroid gland appears mildly prominent size and is mildly heterogeneous in enhancement. No discrete masses are detected. (4) Diabetes Current Visit: Yes Status: Acute Assessment and Plan: We will start her on low-dose sliding scale- adjust as per fingersticks A1c 7.9 (5) Morbid obesity with BMI of 50.0-59.9, adult Current Visit: No Status: Chronic Assessment and Plan: Was counseled BMI is 52.6 Nutrition consult needs OP sleep study (6) Hyperlipidemia Current Visit: Yes Status: Acute Assessment and Plan: lipid panel noted continue statins, was counseled on nutrition (7) DVT prophylaxis Current Visit: Yes Status: Acute - Time Spent with Patient Total time spent is greater than 50% in coordination of care (as documented) at patient's floor/unit and/or counseling patient: Internal Medicine: Result - Labs CBC & Chem 7: 04/28/18 03:07 04/28/18 03:07 Labs: Short CBC 04/27/18 04/28/18 Range/Units 10:30 03:07 WBC 12.4 H 11.1 (4.3-11.1) K/mcL Hgb 14.6 12.6 D (11.5-15.4) g/dL Hct 45.5 H 39.2 (35.3-44.9) % Plt Count 213 167 (140-400) K/mcL Neutrophils # 7.7 6.4 (1.6-8.9) K/mcL BMP 04/27/18 04/28/18 10:30 03:07 Sodium 138 139 Potassium 4.5 3.7 Chloride 102 105 Carbon Dioxide 29 25 BUN 33 H 33 H Creatinine 1.37 H 1.33 H Glucose 259 H 205 H Calcium 9.5 8.7 Cardiac Enzymes 04/27/18 04/27/18 04/27/18 Range/Units 10:30 16:19 22:04 Troponin I 0.05 H* 0.04 H* 0.05 H* (< 0.04) ng/mL Urine 04/27/18 Range/Units 16:44 Urine Color Yellow (Yellow) Urine Clarity Clear (Clear) Urine pH 7.5 (5.0-8.0) pH Units Ur Specific Vader 1.021 (1.010-1.025) Urine Protein 30 H (Neg-Trace) mg/dL Urine Glucose (UA) 100 H (Normal) mg/dL - ABG Interpretation ABG results: PT/INR, D-dimer PT 9.9 Seconds (9.4-12.1) 04/27/18 10:30 D-Dimer 994 ng/mLFEU (0-500) H 04/27/18 10:30 - Impressions Impressions Chest X-Ray 04/27/18 10:35 IMPRESSION: Nodular left basilar opacity, which may be artifactual or due to a pulmonary nodule. Further evaluation with a noncontrast chest CT is recommended. D/ /27/2018 11:04:56 Mike Raines MD / bcarter Interpreting Provider: Mike Raines MD Pulmonary Perfusion Imaging 04/27/18 11:16 IMPRESSION: Medium size triple match at the peripheral left lower lobe is indeterminate for pulmonary embolism. CT scan of the chest should be considered to evaluate the left lower lobe opacity and the possibility of pulmonary infarct versus other opacity. D/ / Barrie Roland MD / Barrie Roland MD Interpreting Provider: Barrie Roland MD Consult Discharge Plan - Plan Referrals: Aleyda Moy CNP [Primary Care Provider] - 05/07/18 11:00 am (4) Diabetes Qualifiers: Diabetes mellitus type: type 2 Diabetes mellitus long chain beamer insulin use: without long chain beamer use Diabetes mellitus complication status: without complication Qualified Code(s): E11.9 - Type 2 diabetes mellitus without complications (6) Hyperlipidemia Qualifiers: Hyperlipidemia type: mixed hyperlipidemia Qualified Code(s): E78.2 - Mixed hyperlipidemia
--- NOTE | 2018-04-28 12:35 | Cardiology Progress Note ---
Date of Encounter: 04/28/18 Time of Encounter: 11:00 Assessment and Plan (1) Atrial fibrillation with RVR Current Visit: Yes Status: Acute Suspected new onset atrial fibrillation with RVR. Rates >140 upon arrival. Significant risk factors for Afib including suspected DEBRA, hyperthyroidism, morbid obesity. Started on Cardizem gtt and heparin gtt in the ED. Avg BC=843 overnight, metoprolol added this AM with significant improvement in HR. On cardizem gtt at 7.5 mg/hr, will transition to po cardizem. TTE shows grossly normal LVEF with normal RV function (no strain). Defer treatment of hyperthyroidism to Hospitalist team. Initial concern for PE--VQ ordered by primary service--recommended CTA to further r/o--SCr appears to be stable. Recommend continuing heparin gtt until PE ruled out. CHA2Ds Vasc= 5, recommend full anticoagulation, patient is agreeable. Discussed coumadin vs. NOAC; will recommend Eliquis if affordable. Again, continue heparin gtt until testing completed. (2) Elevated troponin Current Visit: Yes Status: Acute Mild, adynamic troponin elevation in the setting of afib with RVR; likely secondary to demand ischemia. No acute ST/T wave abnormalities, chest pain free upon exam. Continue asa, statin, and BB TTE demonstrated grossly normal LVEF. Of note, PCP ordered stress as outpatient. No prior ischemic evaluation, recommend obtaining stress as inpatient, of note will be a 2-day study. Plan for stress test on Monday. Discussion w patient/family: The assessment and plan as outlined above was discussed with the patient and/or family members who expressed understanding and agreement. All questions were answered. Thank you for involving us in the care of your patient. Please call with any questions. The patient will be discussed and reviewed with Dr. Campos; changes to be made accordingly. Subjective Principal diagnosis: Afib Interval history: Seen and examined earlier this AM. No complaints upon exam aside from back/neck pain. No chest pain/discomfort reported. No dyspnea. Denies palpitations. Objective Vital Signs, Last 4 Hours Temp Pulse Resp BP Pulse Ox 04/28/18 11:31 98.3 F 111 18 127/58 94 General: Conversant, No Apparent Distress, Other (morbidly obese) HEENT: Atraumatic, Normocephaly Cardiac: Other (irregularly irregular) Lungs: Other (decreased) Neuro: Alert and responsive Abdomen: Soft Skin: No rashes noted on visualized skin Musculoskeletal: No Chest Wall Tenderness Extremities: Other (large BLE; non-pitting edema observed. ) Results 04/28/18 03:07 04/28/18 03:07 Lab Results 04/27/18 04/27/18 04/27/18 10:30 16:19 22:04 WBC Hgb Hct Plt Count Sodium 138 Potassium 4.5 Chloride 102 Carbon Dioxide 29 BUN 33 H Creatinine 1.37 H Glucose 259 H Calcium 9.5 Magnesium 2.1 Troponin I 0.05 H* 0.04 H* 0.05 H* TSH 0.148 L 04/28/18 04/28/18 03:07 03:07 WBC 11.1 Hgb 12.6 D Hct 39.2 Plt Count 167 Sodium 139 Potassium 3.7 Chloride 105 Carbon Dioxide 25 BUN 33 H Creatinine 1.33 H Glucose 205 H Calcium 8.7 Magnesium Troponin I TSH Active Medications Acetaminophen (Tylenol) 500 mg PO Q6HR PRN PRN Reason: Pain Stop: 10/27/18 20:53 Hydrocodone Bitart/Acetaminophen ([place] 5-325 Mg) 1 tab PO Q6HR PRN PRN Reason: Moderate Pain Stop: 10/27/18 20:24 Last Admin: 04/27/18 20:32 Dose: 1 tab Aspirin (Aspirin) 324 mg PO DAILY [facility] Stop: 10/27/18 10:46 Last Admin: 04/28/18 08:50 Dose: 324 mg Bupropion HCl (Wellbutrin Xl) 150 mg PO DAILY [facility] Stop: 10/28/18 09:01 Last Admin: 04/28/18 08:51 Dose: 150 mg Calcium Carbonate (Tums) 1,000 mg PO TID [facility]; Protocol Stop: 10/28/18 09:01 Last Admin: 04/28/18 08:50 Dose: 1,000 mg Dextrose/Water (Dextrose 50% (Syg)) 25 ml IVP AD PRN PRN Reason: Hypoglycemia Stop: 10/27/18 20:23 Dicyclomine HCl (Bentyl) 10 mg PO QID [facility] Stop: 10/27/18 13:01 Last Admin: 04/28/18 08:51 Dose: 10 mg Duloxetine HCl (Cymbalta) 30 mg PO BID [facility] Stop: 10/27/18 21:01 Last Admin: 04/28/18 08:51 Dose: 30 mg Famotidine (Pepcid) 20 mg PO DAILY [facility] Stop: 10/28/18 09:01 Last Admin: 04/28/18 08:51 Dose: 20 mg Furosemide (Lasix) 40 mg IVP DAILY [facility] Stop: 10/28/18 09:01 Last Admin: 04/28/18 08:51 Dose: 40 mg Glucagon (Glucagen) 1 mg IM ONCE PRN PRN Reason: Hypoglycemia Stop: 10/27/18 20:23 Glucose (Gluctose) 15 gm PO ONCE PRN PRN Reason: Hypoglycemia Stop: 10/27/18 20:23 Glucose (Gluctose) 30 gm PO ONCE PRN PRN Reason: Hypoglycemia Stop: 10/27/18 20:23 Heparin Sodium (Porcine) (Heparin) 8,500 unit 70 unit/kg (8500 unit) IVP Q6HR PRN PRN Reason: SEE COMMENTS Stop: 10/27/18 11:17 Heparin Sodium (Porcine) (Heparin) 4,300 unit 35 unit/kg (4300 unit) IVP Q6H PRN PRN Reason: SEE COMMENTS Stop: 10/27/18 11:17 Diltiazem HCl 50 mg/ Sodium (Chloride) 50 mls @ 5 mls/hr IVC .Q10H [facility]; Protocol Stop: 10/27/18 10:46 Last Admin: 04/28/18 08:52 Dose: 7.5 mg/hr, 7.5 mls/hr Heparin Sodium/Dextrose (Heparin 25,000 Unit/500 Ml D5w) 25,000 unit in 500 mls @ 34.177 mls/hr IVC .[id number] [facility]; Protocol Stop: 10/27/18 11:31 Last Admin: 04/28/18 05:01 Dose: 9 unit/kg/hr, 21.971 mls/hr Dextrose (Dextrose 5%) 1,000 mls @ 100 mls/hr IVC .Q10H PRN PRN Reason: HYPOGLYCEMIA Stop: 10/27/18 20:23 Insulin Human Lispro (Humalog) 0 units SQ TIDAC [facility]; Protocol Stop: 10/28/18 07:31 Last Admin: 04/28/18 08:52 Dose: 4 units Insulin Human Lispro (Humalog) 0 units SQ HS [facility]; Protocol Stop: 10/27/18 21:01 Last Admin: 04/27/18 20:32 Dose: 3 units Lovastatin (Mevacor) 40 mg PO QPM [facility] Stop: 10/27/18 18:01 Last Admin: 04/27/18 16:16 Dose: 40 mg Metoprolol Tartrate (Lopressor) 25 mg PO BID [facility] Stop: 10/28/18 09:01 Last Admin: 04/28/18 08:51 Dose: 25 mg Naloxone HCl (Narcan) 0.4 mg IVP Q2MIN PRN PRN Reason: SEE COMMENTS Stop: 10/27/18 12:27 Pharmacy Profile Note (Patient Taking Own Medication) 1 each PO DAILY [facility] Stop: 10/28/18 09:01 Last Admin: 04/28/18 08:51 Dose: Not Given - Imaging and Cardiology Echo: report reviewed - EKG Interpretation EKG results cardiology: personally reviewed Consult Discharge Plan - Plan Referrals: Aleyda Moy CNP [Primary Care Provider] - 05/07/18 11:00 am
[2018-04-28] MEDS: Diltiazem CD (24hr) 180 MG CAPSULE PO SCH (13:01)
[2018-04-28] MEDS: Sennosides/Docusate Sodium TABLET PO PRN (16:08)
[2018-04-28] MEDS: Melatonin 3 MG TABLET PO SCH ×2 (21:58→21:59)
[2018-04-29] MEDS: Heparin 25,000 UNIT/500 ML D5W 25,000 UNIT/500 ML BAG IVC SCH (05:23)
[2018-04-29 07:35] LABS: Basophils % 0.5 %; Eosinophils # 0.4 K/mcL (0.0-0.6); Hematocrit 38.5 % (35.3-44.9); Hemoglobin 12.3 g/dL (11.5-15.4); Immature Granulocytes % 0.7 % (0-4); Lymphocytes # 2.1 K/mcL (0.6-4.6); Mean Corpuscular HGB Conc 31.9 g/dL (31.6-35.5); Mean Corpuscular Hemoglobin 28.6 pg (28.0-33.3); Mean Corpuscular Volume 89.5 fL (83.0-100.0); Mean Platelet Volume 11.3 fL (9.4-12.4); Monocytes # 0.9 K/mcL (0.0-1.3); Monocytes % 9.9 %; Neutrophils # 5.2 K/mcL (1.6-8.9); Platelet Count 158 K/mcL (140-400); Red Cell Distribution Width 14.1 % (11.5-14.5); Segmented Neutrophils % 59.9 %
[2018-04-29 07:38] LABS: Calcium 9.3 mg/dL (8.6-10.3); Potassium 4.1 mEq/L (3.5-5.1)
[2018-04-29] MEDS: Furosemide 40 MG/4 ML VIAL IVP SCH (08:01)
[2018-04-29] MEDS: Sennosides/Docusate Sodium TABLET PO PRN (08:02)
[2018-04-29] MEDS: BuPROPion XL (24 HR) 150 MG TABLET PO SCH (08:02)
[2018-04-29] MEDS: Famotidine 20 MG TABLET PO SCH (08:02)
[2018-04-29] MEDS: (Febuxostat [Uloric] 40 MG) PO SCH (08:02)
[2018-04-29] MEDS: Aspirin 81 MG TAB.CHEW PO SCH (08:02)
[2018-04-29] MEDS: Diltiazem CD (24hr) 180 MG CAPSULE PO SCH (08:02)
[2018-04-29] MEDS: Insulin LISPRO 300 UNITS/3 ML VIAL SQ SCH ×2 (08:05→11:59)
--- NOTE | 2018-04-29 09:21 | Cardiology Progress Note ---
Date of Encounter: 04/29/18 Time of Encounter: 09:19 Assessment and Plan (1) Atrial fibrillation with RVR Current Visit: Yes Status: Acute Suspected new onset atrial fibrillation with RVR. Rates >140 upon arrival. Significant risk factors for Afib including suspected DEBRA, hyperthyroidism, morbid obesity. Started on Cardizem gtt in the ED. Pt has since converted to SR. Currently on Cardizem CD 180mg daily and Lopressor 25mg BID--continue. TTE shows grossly normal LVEF with normal RV function (no strain). Defer treatment of hyperthyroidism to Hospitalist team. Initial concern for PE--VQ ordered by primary service--recommended CTA to further r/o--SCr appears to be stable. Management per primary team. CHA2Ds Vasc= 5, recommend full anticoagulation, patient is agreeable. Discussed coumadin vs. NOAC; will salazar check eliquis 5mg BID. Continue heparin gtt for now. Outpt stress test ordered by PCP. Does not need to stay inpt to have this com pleted. Cardiology signing off. Reconsult PRN. Will coordinate outpt follow-up in 2-3 weeks. (2) Elevated troponin Current Visit: Yes Status: Acute Mild, adynamic troponin elevation 0.05, 0.04, 0.05 in the setting of afib with RVR; likely secondary to demand ischemia. No acute ST/T wave abnormalities, chest pain free upon exam. Continue asa, statin, and BB TTE demonstrated grossly normal LVEF. Of note, PCP ordered stress as outpatient. No prior ischemic evaluation. Does not need to stay inpt to have stress test completed--will be a 2 day study. Okay to have as outpt as initially planned. Discussion w patient/family: The assessment and plan as outlined above was discussed with the patient and/or family members who expressed understanding and agreement. All questions were answered. Thank you for involving us in the care of your patient. Please call with any questions. I will discuss all the above with Dr. Campos and make changes as necessary. Subjective Principal diagnosis: Afib Interval history: Pt denies acute complaints this AM. Denies chest pain. Currently SR. Objective Vital Signs, Last 4 Hours Temp Pulse Resp BP Pulse Ox 04/29/18 07:19 98.2 F 61 18 101/49 95 Vital Signs Temp Pulse Resp BP Pulse Ox 04/29/18 07:19 98.2 F 61 18 101/49 95 04/29/18 04:20 61 04/29/18 03:31 98.3 F 61 18 130/48 96 04/28/18 23:30 64 04/28/18 23:14 98.1 F 69 20 133/45 95 04/28/18 20:35 80 04/28/18 19:10 98.1 F 66 20 155/55 96 04/28/18 15:57 98.3 F 66 18 141/67 95 04/28/18 11:31 98.3 F 111 18 127/58 94 Intake and Output 04/28/18 04/29/18 04/29/18 23:59 07:59 15:59 Intake Total 380 / 380 310 / 310 Output Total 300 / 300 100 / 100 Balance 80 / 80 210 / 210 Intake: IV Fluids 140 / 140 310 / 310 Heparin 25,000 UNIT/500 ML D5W 140 / 140 310 / 310 25,000 unit In 500 ml @ 14 UNIT /KG/HR 34.177 mls/hr IVC . [id number] [facility] Rx#:[id number] Oral 240 / 240 Output: Urine 300 / 300 100 / 100 Other: Meal Dinner Percent of Meal Consumed 20% Weight 122.6 kg Blood Glucose* 153 226 Patient Weight 04/29/18 23:59 Weight 122.6 kg General: Conversant, No Apparent Distress HEENT: Atraumatic, Normocephaly, Mucus Membranes Moist Neck: No JVD, Normal carotid pulses Cardiac: Reg Rate and Rhythm, Normal S1 and S2, No Murmur Lungs: Normal Breath Sounds, No Wheeze, Rales, Rhonchi Neuro: Alert and responsive, No focal deficits noted Abdomen: Soft, Non-Tender Skin: No rashes noted on visualized skin Musculoskeletal: No Chest Wall Tenderness Extremities: No Clubbing, No Cyanosis, No Edema, Normal Pulses Results 04/29/18 06:56 04/29/18 06:56 Lab Results 04/29/18 04/29/18 06:56 06:56 WBC 8.7 Hgb 12.3 Hct 38.5 Plt Count 158 Sodium 138 Potassium 4.1 Chloride 104 Carbon Dioxide 27 BUN 28 H Creatinine 1.27 H Glucose 240 H Calcium 9.3 Short CBC 04/29/18 Range/Units 06:56 WBC 8.7 (4.3-11.1) K/mcL Hgb 12.3 (11.5-15.4) g/dL Hct 38.5 (35.3-44.9) % Plt Count 158 (140-400) K/mcL Neutrophils # 5.2 (1.6-8.9) K/mcL BMP 04/29/18 Range/Units 06:56 Sodium 138 (136-145) mEq/L Potassium 4.1 (3.5-5.1) mEq/L Chloride 104 (98-107) mEq/L Carbon Dioxide 27 (23-29) mEq/L BUN 28 H (8-23) mg/dL Creatinine 1.27 H (0.60-1.20) mg/dL Glucose 240 H (70-105) mg/dL Calcium 9.3 (8.6-10.3) mg/dL Impressions Echocardiogram 04/27/18 12:38 Impressions: Technically challenging due to suboptimal echocardiographic windows - body habitus, positioning and elevated heart rates. Atrial fibrillation with RVR. Grossly, LV systolic function appears normal. Not all LV wall segments are well visualized. Indeterminate diastolic function. Normal right ventricular structure and function. Moderately dilated left atrium. Mild mitral regurgitation. Mild tricuspid regurgitation. No pulmonary hypertension by TR signal obtained. IVC not well visualized estimate RVSP. Left Ventricular Wall Motion: Rest Echo Findings The mid inferior lateral and basal inferior lateral daniels were not visualized. All other wall segments showed normal motion. Findings: Study Quality * Technically challenging due to suboptimal echocardiographic windows - body habitus, positioning and elevated heart rates. ECG Findings * Atrial fibrillation with RVR. Left Ventricle * Indeterminate diastolic function. * Grossly, LV systolic function appears normal. * Basal sigmoid septum. Right Ventricle * Normal right ventricular structure and function. Left Atrium * Moderately dilated left atrium. Right Atrium * Normal right atrial size. Aortic Valve * No aortic regurgitation. * Aortic valve not well visualized. * No aortic stenosis. Mitral Valve * No mitral stenosis. * Mild mitral regurgitation. * Mitral valve not optimally visualized. Tricuspid Valve * Normal tricuspid valve structure. * Mild tricuspid regurgitation. Pulmonic Valve * Pulmonic valve is not well visualized. * No pulmonic stenosis. * No pulmonic regurgitation. Pulmonary Artery * Pulmonary artery not well visualized. Aorta * Normally sized aortic root. * Proximal ascending thoracic aorta not well visualized. Pericardium * There is no pericardial effusion present. Interatrial Septum * Interatrial septum not well evaluated. IVC * The IVC is not well evaluated. Thyroid Ultrasound 04/28/18 13:30 IMPRESSION: Heterogeneous thyroid parenchyma without hyperemia. Findings could reflect sequela of chronic thyroiditis. There are three spongiform benign thyroid nodules measuring up to 10 mm in size (TR-1). No solid or suspicious thyroid nodules. ACR TI-RADS recommendations: TR1 (0 points): No FNA or follow-up RECOMMENDATIONS: No further imaging follow-up is recommended. D/ / 04/28/2018 15:15:23 Beto Mills MD / garcia Interpreting Provider: Beto Mills MD Active Medications Acetaminophen (Tylenol) 500 mg PO Q6HR PRN PRN Reason: Pain Stop: 10/27/18 20:53 Hydrocodone Bitart/Acetaminophen ([place]hen[place] 5-325 Mg) 1 tab PO Q6HR PRN PRN Reason: Moderate Pain Stop: 10/27/18 20:24 Last Admin: 04/27/18 20:32 Dose: 1 tab Aspirin (Aspirin) 324 mg PO DAILY [facility] Stop: 10/27/18 10:46 Last Admin: 04/29/18 08:02 Dose: 324 mg Bupropion HCl (Wellbutrin Xl) 150 mg PO DAILY [facility] Stop: 10/28/18 09:01 Last Admin: 04/29/18 08:02 Dose: 150 mg Calcium Carbonate (Tums) 1,000 mg PO TID [facility]; Protocol Stop: 10/28/18 09:01 Last Admin: 04/29/18 08:02 Dose: 1,000 mg Dextrose/Water (Dextrose 50% (Syg)) 25 ml IVP AD PRN PRN Reason: Hypoglycemia Stop: 10/27/18 20:23 Dicyclomine HCl (Bentyl) 10 mg PO QID [facility] Stop: 10/27/18 13:01 Last Admin: 04/29/18 08:02 Dose: 10 mg Diltiazem HCl (Cardizem Cd) 180 mg PO DAILY [facility] Stop: 10/28/18 12:46 Last Admin: 04/29/18 08:02 Dose: 180 mg Duloxetine HCl (Cymbalta) 30 mg PO BID [facility] Stop: 10/27/18 21:01 Last Admin: 04/29/18 08:02 Dose: 30 mg Famotidine (Pepcid) 20 mg PO DAILY [facility] Stop: 10/28/18 09:01 Last Admin: 04/29/18 08:02 Dose: 20 mg Furosemide (Lasix) 40 mg IVP DAILY [facility] Stop: 10/28/18 09:01 Last Admin: 04/29/18 08:01 Dose: 40 mg Glucagon (Glucagen) 1 mg IM ONCE PRN PRN Reason: Hypoglycemia Stop: 10/27/18 20:23 Glucose (Gluctose) 15 gm PO ONCE PRN PRN Reason: Hypoglycemia Stop: 10/27/18 20:23 Glucose (Gluctose) 30 gm PO ONCE PRN PRN Reason: Hypoglycemia Stop: 10/27/18 20:23 Heparin Sodium (Porcine) (Heparin) 8,500 unit 70 unit/kg (8500 unit) IVP Q6HR PRN PRN Reason: SEE COMMENTS Stop: 10/27/18 11:17 Heparin Sodium (Porcine) (Heparin) 4,300 unit 35 unit/kg (4300 unit) IVP Q6H PRN PRN Reason: SEE COMMENTS Stop: 10/27/18 11:17 Heparin Sodium/Dextrose (Heparin 25,000 Unit/500 Ml D5w) 25,000 unit in 500 mls @ 34.177 mls/hr IVC .[id number] [facility]; Protocol Stop: 10/27/18 11:31 Last Admin: 04/29/18 05:23 Dose: 9 unit/kg/hr, 21.971 mls/hr Dextrose (Dextrose 5%) 1,000 mls @ 100 mls/hr IVC .Q10H PRN PRN Reason: HYPOGLYCEMIA Stop: 10/27/18 20:23 Insulin Human Lispro (Humalog) 0 units SQ TIDAC [facility]; Protocol Stop: 10/28/18 07:31 Last Admin: 04/29/18 08:05 Dose: 6 units Insulin Human Lispro (Humalog) 0 units SQ HS [facility]; Protocol Stop: 10/27/18 21:01 Last Admin: 04/28/18 20:48 Dose: Not Given Lovastatin (Mevacor) 40 mg PO QPM [facility] Stop: 10/27/18 18:01 Last Admin: 04/28/18 16:08 Dose: 40 mg Melatonin (Melatonin) 3 mg PO HS [facility] Stop: 10/28/18 21:00 Last Admin: 04/28/18 21:59 Dose: 3 mg Metoprolol Tartrate (Lopressor) 25 mg PO BID [facility] Stop: 10/28/18 09:01 Last Admin: 04/29/18 08:02 Dose: 25 mg Naloxone HCl (Narcan) 0.4 mg IVP Q2MIN PRN PRN Reason: SEE COMMENTS Stop: 10/27/18 12:27 Pharmacy Profile Note (Patient Taking Own Medication) 1 each PO DAILY [facility] Stop: 10/28/18 09:01 Last Admin: 04/29/18 08:02 Dose: Not Given Senna/Docusate Sodium (Senna Plus) 1 each PO DAILY [facility]; Protocol PRN Reason: Constipation Stop: 10/28/18 13:16 Last Admin: 04/29/18 08:02 Dose: 1 each - Imaging and Cardiology Echo: report reviewed - EKG Interpretation EKG results cardiology: other (12 hr tele AVG HR 62, now SR) Consult Discharge Plan - Plan Referrals: Aleyda Moy CNP [Primary Care Provider] - 05/07/18 11:00 am
[2018-04-29 11:14] VITALS: BP 149/51
[2018-04-29] MEDS ORDERED: Apixaban 5 MG TABLET PO SCH (13:00)
--- NOTE | 2018-04-29 13:34 | Discharge Summary ---
Orders not resulted at time of discharge: Pending orders 04/27/18 10:35 ECG 12 lead ECG [ECG] Stat 04/27/18 13:46 Culture,Blood [BC] Stat 04/28/18 17:16 EKG [ECG 12 lead ECG] [ECG] Routine Date of Encounter: 04/29/18 Time of Encounter: 13:31 - Discharge Diagnosis (1) Diabetes type 2, uncontrolled Priority: Secondary Status: Chronic Qualifiers: Glycemic state: with hyperglycemia Qualified Code(s): E11.65 - Type 2 diabetes mellitus with hyperglycemia (2) Morbid obesity with BMI of 50.0-59.9, adult Priority: Secondary Status: Chronic (3) First detected episode of atrial fibrillation Priority: Primary Status: Acute (4) Acute respiratory failure with hypoxia Priority: Secondary Status: Acute (5) Diabetes Priority: Secondary Status: Acute Qualifiers: Diabetes mellitus type: type 2 Diabetes mellitus manager terminal insulin use: without manager terminal use Diabetes mellitus complication status: without complication Qualified Code(s): E11.9 - Type 2 diabetes mellitus without c omplications (6) DEBRA (obstructive sleep apnea) Priority: Secondary Status: Chronic (7) Hyperthyroidism Priority: Secondary Status: Acute (8) Hyperlipidemia Priority: Secondary Status: Acute Qualifiers: Hyperlipidemia type: mixed hyperlipidemia Qualified Code(s): E78.2 - Mixed hyperlipidemia Hospital course: Ms. Mason is a 72 year old female MsMartita with history of diabetes, hypertension, chronic kidney disease and arthritis presented to the emergency department from her physician office for irregular heartbeat. she went to her pain management physician for bilateral sacroillitis pain injection was found to have rapid irregular HR and was referred to The ED for further workup and management. While in the ED she was found to have atrial fibrillation with RVR, elevated troponin and BNP. She was started on Cardizem drip and was admitted for further management of her above symptoms. cardiology was consulted Atrial fib with RVR Suspected new onset. converted to SR. Currently on Cardizem CD 180mg daily and Lopressor 25mg BID-TTE shows grossly normal LVEF with normal RV function (no strain). cardiology is ok to discharge on Caediazem and Metoprolol, eliquis, follow up as OP. patient has hx of thyroiditis ffom 2017 US, TSH 0.148, T4 1.40 T3 3.95, she denies symptoms of weight loss, heat intolerance, paiten tis advised to follow up PCP Hypoxia resolved. D-Dimer 900 V/Q scan indeterminate for PE Echocardiogram with normal EF, no right heart strain DVT study of the lower extremities- negative patient is being discharge on eliquis Outpt stress test ordered by PCP. Time spent discussing smoking cessation with patient: 3 to 10 minutes - Time Spent with Patient Total time spent providing and/or coordinating discharge services: Greater than 30 minutes - Discharge Medications Prescriptions: Apixaban [Eliquis] 5 mg PO BID #60 tablet Diltiazem CD (24hr) [Cardizem CD] 180 mg PO DAILY #30 cap.er.24h Metoprolol [Lopressor] 25 mg PO BID #60 tablet Home Medications: Aspirin 325 mg PO DAILY 04/27/18 [History] BuPROPion XL (24 HR) [Wellbutrin Xl] 150 mg PO DAILY 04/27/18 [History] Colchicine [Mitigare] 0.6 mg PO AD PRN 04/27/18 [History] DULoxetine [Cymbalta] 30 mg PO BID 04/27/18 [History] Dicyclomine [Bentyl] 10 mg PO QID 04/27/18 [History] Febuxostat [Uloric] 40 mg PO DAILY 04/27/18 [History] Furosemide [Lasix] 40 mg PO DAILY 04/27/18 [History] Linagliptin [Tradjenta] 5 mg PO DAILY 04/27/18 [History] Lisinopril 2.5 mg PO DAILY 04/27/18 [History] Lovastatin 40 mg PO QPM 04/27/18 [History] Omeprazole [PriLOSEC] 20 mg PO DAILY 04/27/18 [History] Pioglitazone HCl [Actos] 15 mg PO DAILY 04/27/18 [History] Potassium Chloride [K-Tab ER] 10 meq PO DAILY 04/27/18 [History] Ranitidine HCl [Acid Kitchen Porter] 150 mg PO DAILY 04/27/18 [History] Tizanidine HCl 4 mg PO TID PRN 04/27/18 [History] glipiZIDE [Glipizide] 10 mg PO BID 04/27/18 [History] Apixaban [Eliquis] 5 mg PO BID #60 tablet 04/29/18 [Rx] Diltiazem CD (24hr) [Cardizem CD] 180 mg PO DAILY #30 cap.er.24h 04/29/18 [Rx] Metoprolol [Lopressor] 25 mg PO BID #60 tablet 04/29/18 [Rx] Allergies/Adverse Reactions: Allergy/AdvReac Type Severity Reaction Status Date / Time gabapentin Allergy Dizziness Verified 08/19/15 08:03 indomethacin Allergy Dizziness Verified 04/26/15 20:36 Date of admission: 04/27/18 12:31 Primary care physician: Aleyda Moy CNP Consults: 04/27/18 12:02 Consult to Cardiology [CONS] Stat Comment: Consulting Provider: [facility] [place] Reason for Consult: new onset Afib Call Completed: Yes 04/27/18 12:28 Consult to Case Management [CONS] Routine Comment: Consult to Nutrition [CONS] Routine Comment: Consulting Provider: NUTRITION Reason for Dietary Consult: PO Supplementation Consult to Physical Therapy [CONS] Routine Comment: Evaluate, develop and implement POC Reason for Consult: dispostion Does patient have active BEDREST order?: No Is patient medically & hemodynamically stable?: Yes Patient assessed for mobility or mobilized this visit?: Yes OT [Consult to Occupational Therapy] [CONS] Routine Comment: Evaluate, develop and implement POC Reason for Consult: disposition Does patient have active BEDREST order?: No Is patient medically & hemodynamically stable?: Yes Patient assessed for mobility or mobilized this visit?: Yes - Constitutional Vitals: Temp Pulse Resp BP Pulse Ox 98.3 F 62 18 149/51 96 04/29/18 11:11 04/29/18 11:11 04/29/18 11:11 04/29/18 11:11 04/29/18 11:11 General appearance: Present: morbidly obese Exam: General: Patient is alert, oriented, no acute distress, morbidly obese, speaks in full sentences Head: atraumatic, normocephalic, Eye: normal appearance, PERRL, no scleral icterus, no conjunctival injection ENT: mucous membranes moist, normal external ear exam Neck: normal inspection, trachea midline, full ROM, no carotid bruits Chest: normal inspection, symmetric chest rise Respiratory: Distant breath sounds secondary to body habitus, Good respiratory effort. Bilateral breath sounds are clear without wheezing, crackles, or rhonchi. Cardiovascular: Distant heart sounds secondary to body habitus, irregularly irregular . s1 and s2 No clicks, rubs, gallops, or murmors. Abdomen: Bowel sounds present normoactive x-4 quadrants. Abdomen is soft, no Epigastric tenderness. No guarding or rebound. No organomegaly noted, obese musculoskeletal: Spontaneously moving all extremities. Trace edema bilateral lower extremities, no calf tenderness Skin: warm, dry, intact. Notable bruising on her upper extremities and lower extremities in different stages of healing. Neuro: Alert and oriented x4. Sensation light touch intact. Cranial nerves 2- 12 is intact. No focal deficit, no tremor on outstretched hands - Patient Status Disposition: Home, Self-Care Overall status at discharge: patient is back to baseline - Discharge Instructions Follow Up With: Aleyda Moy CNP [Primary Care Provider] - 05/07/18 11:00 am - Diet and Activity Diet: diabetic diet, low fat, low cholesterol
== END 2018-04-29 14:29 | disposition home or self-care (01) | DRG 308 ==
LOC: EMEROOARM 09:54 → SUATTDRO 12:31 → 2NNU 12:31
PROVIDERS: ADMIT Internal Medicine; ATTEND Hospitalist

== ENCOUNTER 2019-08-02 18:06 | Inpatient (IN) ==
[2019-08-02 18:49] LABS: Basophils # 0.1 K/mcL (0.0-0.2); Basophils % 0.7 %; Eosinophils # 0.3 K/mcL (0.0-0.6); Eosinophils % 4.6 %; Hemoglobin 12.3 g/dL (11.5-15.4); Immature Granulocytes % 0.3 % (0-4); Lymphocytes # 1.7 K/mcL (0.6-4.6); Lymphocytes % 24.9 %; Mean Corpuscular HGB Conc 32.4 g/dL (31.6-35.5); Mean Corpuscular Hemoglobin 29.3 pg (28.0-33.3); Mean Corpuscular Volume 90.5 fL (83.0-100.0); Mean Platelet Volume 11.9 fL (9.4-12.4); Monocytes # 0.5 K/mcL (0.0-1.3); Monocytes % 7.4 %; Neutrophils # 4.2 K/mcL (1.6-8.9); Platelet Count 199 K/mcL (140-400); Red Cell Distribution Width 14.6 % (11.5-14.5); Segmented Neutrophils % 62.1 %; White Blood Count 6.8 K/mcL (4.3-11.1)
[2019-08-02 19:25] LABS: Albumin 3.5 g/dL (3.5-5.7); Albumin/Globulin Ratio 1.3 (1.1-2.2); Bilirubin,Total 0.4 mg/dL (0.3-1.0); Calcium 9.3 mg/dL (8.6-10.3); Globulin 2.7 g/dL (2.4-3.5); Potassium 4.3 mEq/L (3.5-5.1); Total Protein 6.2 g/dL (6.4-8.9); Troponin I 0.04 ng/mL (< 0.04)
[2019-08-02] MEDS: DilTIAZem 50 MG in 0.9 % Sodium Chloride 40 ML IVC SCH (19:34)
[2019-08-02 19:38] LABS: Bilirubin,Urine Negative (Negative); Blood,Urine Negative (Negative); Clarity,Urine Clear (Clear); Color,Urine Yellow (Yellow); Glucose,Urine (UA) 250 mg/dL (Normal); Ketones,Urine Negative (Negative); Leukocyte Esterase,Urine Negative (Negative); Nitrite,Urine Negative (Negative); PH,Urine 5.5 pH Units (5.0-8.0); Protein,Urine Trace mg/dL (Neg-Trace); Specific Gravity,Urine 1.025 (1.010-1.025); Urobilinogen,Urine Normal (Normal)
[2019-08-02] MEDS ORDERED: Acetaminophen 325 MG TABLET PO PRN (21:17)
[2019-08-02] MEDS ORDERED: Naloxone 0.4 MG/ML INJ IVP PRN (21:17)
[2019-08-02] MEDS ORDERED: Ondansetron 4 MG/2 ML VIAL IVP PRN (21:17)
[2019-08-02] MEDS ORDERED: *HR* Heparin 5,000 UNIT/ML VIAL IVP ONE (21:28)
[2019-08-02] MEDS ORDERED: *HR* Heparin 5,000 UNIT/ML VIAL IVP PRN ×2 (21:28)
[2019-08-02] MEDS ORDERED: *HR* Dextrose 50 % in Water (Syg) 50 ML SYRINGE IVP PRN (21:50)
[2019-08-02] MEDS ORDERED: D5% in Water 1,000 ML IVC PRN (21:50)
[2019-08-02] MEDS ORDERED: Dextrose Gel 15 GM/37.5 ML TUBE PO PRN ×2 (21:50)
[2019-08-02 21:58] LABS: Hematocrit 40.1 % (35.3-44.9); Hemoglobin 12.3 g/dL (11.5-15.4); Mean Corpuscular HGB Conc 30.7 g/dL (31.6-35.5); Mean Corpuscular Volume 94.6 fL (83.0-100.0); Mean Platelet Volume 11.7 fL (9.4-12.4); Platelet Count 200 K/mcL (140-400); Red Blood Count 4.24 M/mcL (3.82-4.97); Red Cell Distribution Width 14.6 % (11.5-14.5); White Blood Count 7.5 K/mcL (4.3-11.1)
[2019-08-02 22:04] LABS: Heparin anti-factor XA UFH 0.06 IU/mL (0.30-0.70); Prothrombin Time 11.1 Seconds (9.4-12.1)
[2019-08-02] MEDS ORDERED: Furosemide 20 MG/2 ML VIAL IVP ONE (22:56)
[2019-08-02] MEDS ORDERED: *HR* HYDROmorphone (PF) 1 MG/ML SYRINGE IVP PRN (23:17)
[2019-08-03] MEDS: Heparin 25,000 UNIT/250 ML D5W 25,000 UNIT/250 ML IV.SOLN IVC SCH ×2 (00:15→18:53)
[2019-08-03] MEDS: DilTIAZem 50 MG in 0.9 % Sodium Chloride 40 ML IVC SCH ×2 (03:30→12:06)
[2019-08-03 07:24] LABS: Basophils # 0.1 K/mcL (0.0-0.2); Basophils % 1.1 %; Eosinophils # 0.4 K/mcL (0.0-0.6); Eosinophils % 6.3 %; Hemoglobin 11.3 g/dL (11.5-15.4); Immature Granulocytes % 0.4 % (0-4); Lymphocytes # 1.9 K/mcL (0.6-4.6); Lymphocytes % 34.1 %; Mean Corpuscular HGB Conc 30.5 g/dL (31.6-35.5); Mean Corpuscular Hemoglobin 28.4 pg (28.0-33.3); Mean Platelet Volume 12.1 fL (9.4-12.4); Monocytes # 0.5 K/mcL (0.0-1.3); Monocytes % 8.5 %; Neutrophils # 2.7 K/mcL (1.6-8.9); Platelet Count 186 K/mcL (140-400); Red Blood Count 3.98 M/mcL (3.82-4.97); Red Cell Distribution Width 14.5 % (11.5-14.5); Segmented Neutrophils % 49.6 %; White Blood Count 5.5 K/mcL (4.3-11.1)
[2019-08-03 07:38] LABS: Prothrombin Time 11.8 Seconds (9.4-12.1)
[2019-08-03 07:50] LABS: Albumin 3.3 g/dL (3.5-5.7); Albumin/Globulin Ratio 1.3 (1.1-2.2); Bilirubin,Total 0.5 mg/dL (0.3-1.0); Calcium 8.9 mg/dL (8.6-10.3); Chol/HDL Ratio 3.2 (0-4.9); Globulin 2.6 g/dL (2.4-3.5); Magnesium 1.6 mg/dL (1.6-2.6); Phosphorous 3.7 mg/dL (2.7-4.5); Potassium 3.9 mEq/L (3.5-5.1); Total Protein 5.9 g/dL (6.4-8.9)
[2019-08-03 08:01] LABS: Thyroid Stimulating Hormone 0.704 mcIU/mL (0.340-5.600)
[2019-08-03] MEDS: Insulin LISPRO 300 UNITS/3 ML VIAL SQ SCH ×4 (08:59→21:52)
[2019-08-03] MEDS ORDERED: NON-FORMULARY MEDICATION 1 EACH EACH (Mirabegron [Myrbetriq] 25 MG) PO SCH (09:00)
[2019-08-03] MEDS: (Febuxostat [Uloric] 40 MG) PO SCH (09:00)
[2019-08-03] MEDS ORDERED: Metoprolol XL (24 HR) Succ 25 MG TAB.ER.24H PO SCH (10:45)
[2019-08-03] MEDS ORDERED: *HR* HYDROcodone/Acet 5/325 mg TABLET PO PRN (13:56)
[2019-08-03] MEDS: Insulin DETEMIR 100 UNIT/ML X5UNITS SQ SCH (21:58)
[2019-08-04] MEDS: DilTIAZem 50 MG in 0.9 % Sodium Chloride 40 ML IVC SCH (01:56)
[2019-08-04 04:53] LABS: Hematocrit 37.6 % (35.3-44.9); Hemoglobin 11.8 g/dL (11.5-15.4); Mean Corpuscular HGB Conc 31.4 g/dL (31.6-35.5); Mean Corpuscular Hemoglobin 28.3 pg (28.0-33.3); Mean Corpuscular Volume 90.2 fL (83.0-100.0); Platelet Count 192 K/mcL (140-400); Red Blood Count 4.17 M/mcL (3.82-4.97); Red Cell Distribution Width 14.6 % (11.5-14.5)
[2019-08-04 05:12] LABS: Calcium 9.2 mg/dL (8.6-10.3); Magnesium 1.7 mg/dL (1.6-2.6); Potassium 4.2 mEq/L (3.5-5.1)
[2019-08-04] MEDS ORDERED: Torsemide 20 MG TABLET PO SCH (09:00)
[2019-08-04] MEDS: Metoprolol XL (24 HR) Succ 25 MG TAB.ER.24H PO SCH (09:11)
[2019-08-04] MEDS: (Febuxostat [Uloric] 40 MG) PO SCH (09:12)
[2019-08-04] MEDS: Insulin LISPRO 300 UNITS/3 ML VIAL SQ SCH ×4 (09:12→20:37)
[2019-08-04] MEDS: Aspirin Enteric Coated 81 MG Tablet PO SCH (09:59)
[2019-08-04] MEDS: Apixaban 5 MG TABLET PO SCH ×2 (09:59→20:41)
[2019-08-04] MEDS: Insulin DETEMIR 100 UNIT/ML X5UNITS SQ SCH (20:41)
[2019-08-05 01:32] LABS: Hemoglobin 11.6 g/dL (11.5-15.4); Mean Corpuscular HGB Conc 32.2 g/dL (31.6-35.5); Mean Corpuscular Hemoglobin 28.6 pg (28.0-33.3); Mean Corpuscular Volume 88.9 fL (83.0-100.0); Mean Platelet Volume 12.7 fL (9.4-12.4); Platelet Count 170 K/mcL (140-400); Red Blood Count 4.05 M/mcL (3.82-4.97); Red Cell Distribution Width 14.4 % (11.5-14.5); White Blood Count 5.8 K/mcL (4.3-11.1)
[2019-08-05 01:39] LABS: Albumin 3.3 g/dL (3.5-5.7); Albumin/Globulin Ratio 1.3 (1.1-2.2); Bilirubin,Direct 0.1 mg/dL (0.0-0.2); Bilirubin,Indirect 0.3 mg/dL (0.0-1.0); Bilirubin,Total 0.4 mg/dL (0.3-1.0); Calcium 8.9 mg/dL (8.6-10.3); Globulin 2.6 g/dL (2.4-3.5); Potassium 4.5 mEq/L (3.5-5.1); Total Protein 5.9 g/dL (6.4-8.9)
[2019-08-05] MEDS: Insulin LISPRO 300 UNITS/3 ML VIAL SQ SCH ×2 (08:08→11:55)
[2019-08-05] MEDS: Aspirin Enteric Coated 81 MG Tablet PO SCH (08:28)
[2019-08-05] MEDS: Metoprolol XL (24 HR) Succ 25 MG TAB.ER.24H PO SCH (08:28)
[2019-08-05] MEDS: (Febuxostat [Uloric] 40 MG) PO SCH (08:29)
[2019-08-05] MEDS: Apixaban 5 MG TABLET PO SCH (08:33)
[2019-08-05 11:52] VITALS: BP 112/54
== END 2019-08-05 14:09 | disposition home or self-care (01) | DRG 309 ==
LOC: EMEROOARM 18:06 → 2ANU 18:06 → SUATTDRO 20:02 → 2ANU 21:34
PROVIDERS: ADMIT Internal Medicine; ATTEND Internal Medicine